=== PATIENT | male | born 1960 | race Caucasian/White ===

== ENCOUNTER 2016-12-26 06:57 | Day surgery (SDC) | payer OTHER ==
[~2016-12-26] VITALS: Ht 180.3 cm; Wt 108.2 kg
[2016-12-26] MEDS ORDERED: advil (07:15)
[2016-12-26 07:16] VITALS: Ht 180.3 cm; Wt 108.2 kg
[2016-12-26 07:43] VITALS: BP 117/61; PULSE 48; RESP 16
[2016-12-26 07:47] VITALS: BP 107/62; RESP 14
[2016-12-26] MEDS ORDERED: PROPOFOL 20 ML ONE (08:14)
[2016-12-26] MEDS ORDERED: FENTAnyl 50 MCG/ML VIAL ONE (08:15)
[2016-12-26] MEDS ORDERED: MIDAZOLAM 1 MG/ML 2 ML INJ ONE (08:15)
--- NOTE | 2016-12-26 08:57 | OPPN ---
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
--- NOTE | 2016-12-26 09:28 | GILP ---
DATE OF PROCEDURE: 12/26/2016 PROCEDURE PERFORMED: Colonoscopy and biopsy. SURGEON: Alexa Santos MD. PREOPERATIVE DIAGNOSIS: Screening colonoscopy. POSTOPERATIVE DIAGNOSES: 1. Colonoscopy all the way to the cecum. 2. Two small polyps from the transverse colon and cecum removed using biopsy forceps. 3. Internal hemorrhoids. INDICATION: Mr. Pavan Healy is a at 56-year-old male patient who was scheduled for screening colonoscopy. The procedure and possible complications were well explained to the patient. The patient understood and consented to the procedure. DESCRIPTION OF PROCEDURE: Under the influence of anesthesia, the colonoscope was carefully introduced in the rectum. Under direct vision, it was advanced all the way to the cecum. FINDINGS: The patient had two small polyps in the transverse colon as well as in the cecum and they were removed using biopsy forceps. He was noted to have internal hemorrhoids. He tolerated the procedure very well. There was no complication from the procedure. At the end of procedure, he was awake with stable vital signs. He was discharged home in the care of his family. IMPRESSION: Please see postop diagnoses. PLAN: Next screening colonoscopy in 10 years. Dictated By: MD SEGUNDO Acuna/dilan/brennan /Document#: [id number]
== END 2016-12-26 13:13 | disposition home or self-care (01) ==
LOC: GIL 06:57
PROVIDERS: ATTEND Internal Medicine Gastroenterology
DX: Z12.11 Encounter for screening for malignant neoplasm of colon (principal); K64.8 Other hemorrhoids; D12.3 Benign neoplasm of transverse colon
CPT/HCPCS: 45380; 88305; J2250; J3010; Z7610

== ENCOUNTER 2017-05-06 11:19 | Emergency (ER) | END 2017-05-06 15:13 | disposition home or self-care (01) ==

== ENCOUNTER 2018-07-02 08:48 | Inpatient (IN) | payer OTHER ==
[~2018-07-02] VITALS: Ht 180.3 cm; Wt 104.2 kg
[~2018-07-02 08:48] MED LIST: ALBU18HF INHALATION; AZIT250T PO; IBUP-1542 PO; PRED20TA PO; advil
[2018-07-02] MEDS ORDERED: ASPIRIN 325 MG TAB PO STA (09:05)
--- NOTE | 2018-07-02 11:12 | ERD ---
ER Documentation Chief Complaint Chief Complaint CP X 1 WEEK HPI 57-year-old male presents the emergency department complaining of chest pain. Patient states that on and off for the last week he had a nonspecific discomfort in the center part of his chest that radiates to his left arm. He describes it as pressure-like. It is nonexertional and non-positional. It is gotten worse over the last 24 hours. He now describes it as mild to moderate. He describes no palpitations, diaphoresis, cough, hemoptysis or any other symptoms with the pain at this time. ROS All systems reviewed and are negative except as per history of present illness. Medications Home Meds Active Scripts Prednisone* (Prednisone*) 20 Mg Tab, 40 MG PO DAILY for 5 Days, TAB Prov:ISA VIEIRA PA-C 05/06/17 Albuterol Sulfate* (Ventolin HFA*) 18 Gm Hfa.aer.ad, 2 PUFF INHALATION Q4H, #1 INHALER Prov:ISA VIEIRA PA-C 05/06/17 Ibuprofen* (Motrin*) 600 Mg Tab, 600 MG PO Q6, #30 TAB Prov:ISA VIEIRA PA-C 05/06/17 Azithromycin* (Zithromax*) 250 Mg Tablet, 250 MG PO .ZPACK DIRECTED, #6 TAB TAKE 500 MG (2 TABS) THE FIRST DAY THEN 250 MG (1 TAB) DAYS 2-5 Prov:ISA VIEIRA PA-C 05/06/17 Reported Medications [advil] No Conflict Check 12/26/16 Allergies Allergies: Coded Allergies: No Known Allergy (Unverified , 05/06/17) PMhx/Soc History of Surgery: No Anesthesia Reaction: No Hx Neurological Disorder: No Hx Respiratory Disorders: Yes (BRONCHITIS ) Hx Cardiac Disorders: No Hx Psychiatric Problems: No Hx Miscellaneous Medical Probl: Yes (GLUCOMA ) Hx Alcohol Use: No Hx Substance Use: No Hx Tobacco Use: No Smoking Status: Never smoker Physical Exam Vitals Vital Signs Date Temp Pulse Resp B/P (MAP) Pulse Ox O2 O2 Flow FiO2 Time Delivery Rate 07/02/18 Nasal 2 09:08 Cannula 07/02/18 97.8 48 18 148/71 99 08:54 (96) Physical Exam GENERAL: The patient is well developed and appropriate for usual state of health in no apparent distress HEENT: Pupils equal, round, and reactive to light. EOMI. There is no scleral icterus. NECK: C-spine is soft and supple, there is no meningismus. There is no cervical lymphadenopathy. LUNGS: Clear to auscultation bilaterally. There are no rales, wheezes or rhonchi. HEART: Regular rate and rhythm, no murmurs, clicks, rubs or gallops. ABDOMEN: Soft, non-tender, non-distended. There are bowel sounds in all four quadrants. No rebound or guarding. EXTREMITIES: There is no peripheral cyanosis or edema. No focal swelling or erythema. NEURO: The patient moves all four extremities with 5/5 strength. Cranial nerves II - XII are intact. Normal gait. Alert and oriented SKIN: There is no apparent rash or petechiae. HEME/LYMPHATIC: There is no evidence of excessive bruising or lymphedema. PSYCHIATRIC: The patient does not appear anxious or depressed. Result Diagram: 07/02/18 0932 07/02/18 0932 Results 24 hrs Laboratory Tests Test 07/02/18 09:32 White Blood Count 6.3 10^3/ul Red Blood Count 4.87 10^6/ul Hemoglobin 15.1 g/dl Hematocrit 44.8 % Mean Corpuscular Volume 92.0 fl Mean Corpuscular Hemoglobin 31.0 pg Mean Corpuscular Hemoglobin Concent 33.7 g/dl Red Cell Distribution Width 12.4 % Platelet Count 249 10^3/UL Mean Platelet Volume 11.0 fl Immature Granulocytes % 0.300 % Neutrophils % 42.5 % Lymphocytes % 39.8 % Monocytes % 10.3 % Eosinophils % 6.3 % Basophils % 0.8 % Nucleated Red Blood Cells % 0.0 /100WBC Immature Granulocytes # 0.020 10^3/ul Neutrophils # 2.7 10^3/ul Lymphocytes # 2.5 10^3/ul Monocytes # 0.7 10^3/ul Eosinophils # 0.4 10^3/ul Basophils # 0.1 10^3/ul Nucleated Red Blood Cells # 0.0 10^3/ul Sodium Level 143 mmol/L Potassium Level 4.0 mmol/L Chloride Level 104 mmol/L Carbon Dioxide Level 28 mmol/L Anion Gap 11 Blood Urea Nitrogen 16 mg/dl Creatinine 0.67 mg/dl Est Glomerular Filtrat Rate mL/min > 60 mL/min Glucose Level 94 mg/dl Calcium Level 8.9 mg/dl Troponin I < 0.012 ng/ml Current Medications Medications Dose Sig/Aurea Start Time Status Last (Trade) Ordered Route PRN Stop Time Admin Dose Reason Admin Aspirin 325 mg ONCE STAT 07/02/18 DC 07/02/18 (Aspirin) PO 09:05 09:54 07/02/18 09:06 Procedures/MDM Patient was taken to a room, seen and evaluated. Comfort measures were initiated. Diagnostic tests were ordered and reviewed. 3 LEAD RHYTHM STRIP: Normal sinus rhythm without ectopy EK lead EKG reviewed by myself: Normal Sinus Rhythm Normal [place] and intervals No ST elevation, depression, or T wave inversion. Nonspecific changes mostly appreciated about the inferior leads Impression: Nonspecific EKG RADIOLOGY: Reviewed with the radiologist CONSULTATION: Hospitalist was notified for admission REEVALUATION: 1110: Diagnostic tests were appreciated and discussed with the patient. We discussed 3-hour troponin versus hospital observation. Patient remained concerned that this might be cardiac in etiology and decision was made to admit for observation for full cardiac evaluation MEDICAL DECISION MAKING: Patient presents with chest pain of uncertain etiology. Differential diagnosis considered includes acute myocardial infarction, pulmonary embolism, as well as vascular and pulmonary concerns. I have reviewed the patients clinical risk factors, EKG, lab studies and imaging. At this time, the cause of his chest pain is still unclear. His EKG and troponin are reassuring. However, given his age and the description of his discomfort, which I am concerned may be anginal, I will be admitting the patient for further cardiac observation and diagnostic evaluation. Departure Diagnosis: Primary Impression: Chest pain Condition: ERICKSON Dee Jul 02, 2018 11:12
[2018-07-02] MEDS ORDERED: TIMO15DR16 OP (11:19)
[2018-07-02] MEDS ORDERED: LATA2.5D2 OP (11:19)
[2018-07-02] MEDS ORDERED: ACETAMINOPHEN 325 MG TAB PO PRN (13:00)
[2018-07-02] MEDS ORDERED: ONDANSETRON 4 MG INJ IV PRN (13:00)
[2018-07-02] MEDS ORDERED: PANTOPRAZOLE 40 MG INJ IV ONE (13:00)
[2018-07-02] MEDS ORDERED: LIDOCAINE/MYLANTA 40 ML BTL PO ONE (13:00)
[2018-07-02] MEDS ORDERED: NACL 0.9% 3 ML SYG IV SCH (13:00)
[2018-07-02] MEDS ORDERED: morphine 2 MG INJ IV PRN (13:00)
--- NOTE | 2018-07-02 13:22 | HP ---
Date/Time of Note Date/Time of Note DATE: 07/02/18 TIME: 13:22 Assessment/Plan VTE Prophylaxis Pharmacological prophylaxis: other Lines/Catheters IV Catheter Type (from Nrs): Saline Lock Assessment/Plan Hospital Course Patient is a male with past medical history significant for glaucoma who presents to [facility] for 1 week onset of chest pain. Patient states that he has had intermittent chest tightness and chest pain that comes and goes for the past week but however it has worsened past 24 hours. Patient describes the pain as a crushing sensation in the mid chest also with a burning sensation in the left chest wall as well as accompanied by a left arm pain as well as left leg pain. Patient states that there is no exacerbating factors and no relieving factors, patient states that the episodes last approximately 3-4 minutes each and spontaneously regress as they appeared. Patient currently appears comfortable however is concerned. Patient states that the leg and the arm pain also began approximately 1 week ago, leg pain is described as a shooting pain on his left thigh and buttock area and his left arm pain is described as a pinpoint pain in his left forearm and sometimes fingers. Patient also states that he had an episode of near syncope as he was putting something away. Patient was asked about his low heart rate and states that he may have heard other physicians saying that he did have a low heart rate in the patient currently denies shortness of breath, nausea, vomiting, abdominal pain, headache. Objective Physical exam General: Patient is laying in bed and answers questions appropriately Mentation: Patient is alert and oriented 4, Head: Normocephalic atraumatic Eyes: EOMI, pupils reactive to light Neck: Supple, nontender, midline Respiratory: Clear to auscultation bilaterally Cardiovascular: regular rate, no obvious murmurs Gastrointestinal: non-tender to palpation, bowel sounds heard. Neurological: Moves all extremities spontaneously Skin: No new skin lesions Assessment and plan Chest pain, rule out ACS -Troponin negative so far, EKG showing bradycardia -Trend troponins -Echocardiogram -Cardiology consulted due to worrisome symptoms as well as symptom medic bradycardia -Aspirin -Statin Near syncope, possible symptomatic bradycardia -With a combined issues with his left side of his arm and leg, will order MRI to rule out any other occult intracranial issue, however syncope may also be related to his bradycardia -Cardiology consulted, monitor -Echocardiogram pending -Carotid ultrasound pending Bradycardia -Patient states that he may have heard from physicians that he has a low heart rate -Cardiology consulted -EKG noted Glaucoma -Continue home medications eyedrops Left leg pain -Symptoms are consistent with sciatic nerve impingement, however will rule out other intracranial causes with MRI the brain, may need stretching exercises versus a temporary dose of muscle relaxers if other etiology does not explain Left arm pain -Not typical of chest pain as pain is pinpoint in the forearm and finger, however monitor closely, MRI pending Disposition -Follow-up cardiology consultation, trend troponins, rule out ACS, MRI pending. Result Diagram: 07/02/18 0932 07/02/1832 Results 24hrs Laboratory Tests Test 07/02/18 09:32 White Blood Count 6.3 Red Blood Count 4.87 Hemoglobin 15.1 Hematocrit 44.8 Mean Corpuscular Volume 92.0 Mean Corpuscular Hemoglobin 31.0 Mean Corpuscular Hemoglobin Concent 33.7 Red Cell Distribution Width 12.4 Platelet Count 249 Mean Platelet Volume 11.0 H Immature Granulocytes % 0.300 Neutrophils % 42.5 Lymphocytes % 39.8 Monocytes % 10.3 Eosinophils % 6.3 Basophils % 0.8 Nucleated Red Blood Cells % 0.0 Immature Granulocytes # 0.020 Neutrophils # 2.7 Lymphocytes # 2.5 Monocytes # 0.7 Eosinophils # 0.4 Basophils # 0.1 Nucleated Red Blood Cells # 0.0 Sodium Level 143 Potassium Level 4.0 Chloride Level 104 Carbon Dioxide Level 28 Anion Gap 11 Blood Urea Nitrogen 16 Creatinine 0.67 Est Glomerular Filtrat Rate mL/min > 60 Glucose Level 94 Calcium Level 8.9 Troponin I < 0.012 HPI/ROS Admit Date/Time Admit Date/Time PMH/Family/Social Past Medical History Medications Current Medications IV Flush (NS 3 ml) 3 ml PER PROTOCOL IV ; Start 07/02/18 at 13:00 Ondansetron HCl (Zofran Inj) 4 mg Q6H PRN IV NAUSEA/VOMITING; Start 07/02/18 at 13:00 Aspirin (Aspirin) 81 mg DAILY PO ; Start 07/03/18 at 09:00 Acetaminophen (Tylenol Tab) 650 mg Q6H PRN PO .PAIN 1-3 OR TEMP; Start 07/02/18 at 13:00 Acetaminophen/ Hydrocodone Bitart ([place] (5/325)) 1 tab Q6H PRN PO .PAIN 4-6; Start 07/02/18 at 13:00 Morphine Sulfate (morphine) 2 mg Q4H PRN IV .PAIN 7-10; Start 07/02/18 at 13:00 Pantoprazole (Protonix Tab) 40 mg DAILY@06 PO ; Start 07/03/18 at 06:00 Heparin Sodium (Porcine) (Heparin (5000 Units/1ml)) 5,000 unit Q8 SC ; Start 07/02/18 at 14:00 Atorvastatin Calcium (Lipitor) 80 mg HS PO ; Start 07/02/18 at 21:00 Latanoprost (Xalatan) 1 drop QHS BOTH EYES ; Start 07/02/18 at 21:00; Status UNV Timolol Maleate (Timoptic 0.5%) 1 drop DAILY BOTH EYES ; Start 07/03/18 at 09:00; Status UNV Coded Allergies: No Known Allergy (Unverified , 07/02/18) Social History Smoking Status: Never smoker Exam/Review of Systems Vital Signs Vitals Vital Signs Date Temp Pulse Resp B/P (MAP) Pulse Ox O2 O2 Flow FiO2 Time Delivery Rate 07/02/18 Nasal 2 09:08 Cannula 07/02/18 97.8 48 18 148/71 99 08:54 (96) EDGAR VIEIRA Jul 02, 2018 13:22
--- NOTE | 2018-07-02 15:41 | RADRPT ---
Echocardiogram Report Patient Name: JEFF MORALESPatient ID: [id number] : 1960 (57y 7m)Study Date: 07/02/2018 1:29:23 PM Gender: MAccession #: [id number] Tech: Anoop [facility] Location: [facility] Ref.Physician: EDGAR VIEIRA Height(Cm): BSA: Weight(Kg): Quality: AdequateAccount #: Procedures: Echocardiographic Report: Transthoracic echocardiogram with complete 2D, M-Mode, and doppler examination. Indications: Chest Pain. Measurements: 2D/M Mode Doppler Measurement Value Normal Range Measurement Value Normal Range LVIDd 2D 4.4 [ 4.2 - 5.8 ] cm AV Peak Frank 1.2 [ 100.0 - 170.0 ] cm/sec LVIDs 2D 2.6 [ 2.5 - 4.0 ] cm AV Peak PG 6.0 [ 2.0 - 9.0 ] mmHg LVPWd 2D 1.1 [ 0.6 - 1.0 ] cm LVOT Peak Frank 0.8 [ 70.0 - 110.0 ] cm/sec IVSd 2D 1.2 [ 0.6 - 1.0 ] cm LVOT Peak PG 3.0 [ 2.0 - 6.0 ] mmHg IVS/LVPW 2D 1.0 ratio MV E Peak Frank 0.6 [ 60.0 - 130.0 ] cm/sec AoR Diam 2D 2.7 [ 2.6 - 3.4 ] cm MV A Peak Frank 0.9 [ 100.0 - 120.0 ] cm/sec LA/Ao 2D 1 ratio MV E/A 0.7 [ 0.8 - 1.5 ] ratio LA Dimen 2D 3.7 [ 3.0 - 4.0 ] cm MV Decel Time 225 [ 104 - 258 ] msec Lat E` Frank 0.1 [ 10.0 - 15.0 ] cm/sec MV E/A 0.7 [ 0.8 - 1.5 ] ratio TR Peak Frank 1.7 [ 100.0 - 280.0 ] cm/sec TR Peak PG 12.0 mmHg RVSP 15.0 [ 10.0 - 36.0 ] mmHg Findings: Left Ventricle: Normal left ventricular systolic function. Normal left ventricular cavity size. Left ventricular wall thickness upper limits of normal. Ejection fraction is visually estimated at 65 %. Tissue Doppler/Mitral Doppler indices are consistent with impaired relaxation (Stage I diastolic dysfunction). Right Ventricle: Normal right ventricular size. Normal right ventricular systolic function. Left Atrium: The left atrium is normal in size. Right Atrium: The right atrium is normal in size. Mitral Valve: Mild mitral leaflet calcification. Mild mitral annular calcification. Trace mitral regurgitation. Aortic Valve: No hemodynamically significant aortic stenosis by doppler. Aortic cusps appear mildly calcified. Tricuspid Valve: Normal appearance of the tricuspid valve. Estimated peak PA systolic pressure 15 mmHg. There is trace tricuspid regurgitation. Pericardium: Normal pericardium with no significant pericardial effusion. Aorta: Normal aortic root. IVC: Normal size and normal respiratory collapse consistent with normal right atrial pressure. Conclusions: Normal left ventricular systolic function. Normal left ventricular cavity size. Left ventricular wall thickness upper limits of normal. Ejection fraction is visually estimated at 65 %. Tissue Doppler/Mitral Doppler indices are consistent with impaired relaxation (Stage I diastolic dysfunction). Normal right ventricular size. Normal right ventricular systolic function. The left atrium is normal in size. The right atrium is normal in size. No significant valvular stenosis or regurgitation seen. Normal pericardium with no significant pericardial effusion. Electronically Signed By: Michael Bonilla 2018-07-02 15:40:46 PDT
--- NOTE | 2018-07-02 16:03 | CONS ---
Assessment/Plan Assessment/Plan Hospital Course (Demo Recall) Left sided pain Sinus bradycardia Near syncope/syncope Preserved ejection fraction Glaucoma -Patient presents with left-sided body pain including neck, shoulder, chest, leg. The pain is worse with range of motion and palpation. Pain is nonexertional. -Initial cardiac enzymes are negative, ECG with sinus bradycardia, echocardiogram with preserved ejection fraction -Patient undergoing further evaluation including imaging. Pain is elicited with palpation and does not appear cardiac in origin -Of note, patient with near syncope/syncope with head extension and reaching for something last week. Patient with baseline sinus bradycardia. Would monitor on telemetry. Consultation Date/Type/Reason Admit Date/Time Type of Consult Cardiology Reason for Consultation Chest pain Date/Time of Note DATE: 07/02/18 TIME: 15:57 Hx of Present Illness This is a 57-year-old male with past medical history of glaucoma who presents with left-sided body pain going on for 1 week. Patient complains of sharp discomfort in his shoulder, arm, chest and left leg. Pain is also tingling-like and burning-like. Pain is worse with arm movements and coughing. Pain is worse with palpation of shoulder and chest wall. Proxy 1 week ago, patient was reaching for something above his shelf with his head extended. After a few seconds, he became lightheaded and he thinks he blacked out. He did fall to the ground forward, unclear if he fell on his left side. He does complain of occas ional lightheadedness with standing up weekly. Denies any exertional chest pain or shortness of breath, dizziness or lightheadedness. 12 point review of systems was performed with all pertinent positives and negatives mentioned above and all else is negative Past Medical History Glaucoma Home Meds Reported Medications Latanoprost (Latanoprost) 2.5 Ml Drops, 1 DROP OP QHS INTO BOTH EYES 07/02/18 Timolol Maleate* (Timolol Maleate* Ophth) 0.5%-15ml Opht, 1 DROP OP DAILY 07/02/18 Discontinued Reported Medications [advil] No Conflict Check 12/26/16 Discontinued Scripts Prednisone* (Prednisone*) 20 Mg Tab, 40 MG PO DAILY for 5 Days, TAB Prov:ISA VIEIRA PA-C 05/06/17 Albuterol Sulfate* (Ventolin HFA*) 18 Gm Hfa.aer.ad, 2 PUFF INHALATION Q4H, #1 INHALER Prov:ISA VIEIRA PA-C 05/06/17 Ibuprofen* (Motrin*) 600 Mg Tab, 600 MG PO Q6, #30 TAB Prov:ISA VIEIRA PA-C 05/06/17 Azithromycin* (Zithromax*) 250 Mg Tablet, 250 MG PO .ZPACK DIRECTED, #6 TAB TAKE 500 MG (2 TABS) THE FIRST DAY THEN 250 MG (1 TAB) DAYS 2-5 Prov:ISA VIEIRA PA-C 05/06/17 Medications Current Medications IV Flush (NS 3 ml) 3 ml PER PROTOCOL IV ; Start 07/02/18 at 13:00 Ondansetron HCl (Zofran Inj) 4 mg Q6H PRN IV NAUSEA/VOMITING; Start 07/02/18 at 13:00 Aspirin (Aspirin) 81 mg DAILY PO ; Start 07/03/18 at 09:00 Acetaminophen (Tylenol Tab) 650 mg Q6H PRN PO .PAIN 1-3 OR TEMP; Start 07/02/18 at 13:00 Acetaminophen/ Hydrocodone Bitart ([place] (5/325)) 1 tab Q6H PRN PO .PAIN 4-6; Start 07/02/18 at 13:00 Morphine Sulfate (morphine) 2 mg Q4H PRN IV .PAIN 7-10; Start 07/02/18 at 13:00 Pantoprazole (Protonix Tab) 40 mg DAILY@06 PO ; Start 07/03/18 at 06:00 Heparin Sodium (Porcine) (Heparin (5000 Units/1ml)) 5,000 unit Q8 SC ; Start 07/02/18 at 14:00 Atorvastatin Calcium (Lipitor) 80 mg HS PO ; Start 07/02/18 at 21:00 Latanoprost (Xalatan) 1 drop QHS BOTH EYES ; Start 07/02/18 at 21:00 Timolol Maleate (Timoptic 0.5%) 1 drop DAILY BOTH EYES ; Start 07/03/18 at 09:00 Allergies: Coded Allergies: No Known Allergy (Unverified , 07/02/18) Social History Smoking Status: Never smoker Exam/Review of Systems Vital Signs Vitals Vital Signs Date Temp Pulse Resp B/P (MAP) Pulse Ox O2 O2 Flow FiO2 Time Delivery Rate 07/02/18 56 16 114/70 98 Room Air 14:00 (85) 07/02/18 2 09:08 07/02/18 97.8 08:54 Exam Constitutional: alert, oriented (No apparent distress, family bedside) Head: normocephalic Neck: other (Pain with palpation left side of neck) Respiratory: clear to auscultation, normal air movement Cardiovascular: regular rate and rhythm (S1-S2 heard, no significant murmurs auscultated) Gastrointestinal: soft, non-tender, bowel sounds Musculoskeletal: other (Pain with palpation of left side of chest wall, pain with range of motion of left arm, pain with palpation of left cervical region) Extremities: other (No significant edema) Labs Result Diagram: 07/02/18 0932 07/02/18 0932 Results 24hrs Laboratory Tests Test 07/02/18 09:32 White Blood Count 6.3 Red Blood Count 4.87 Hemoglobin 15.1 Hematocrit 44.8 Mean Corpuscular Volume 92.0 Mean Corpuscular Hemoglobin 31.0 Mean Corpuscular Hemoglobin Concent 33.7 Red Cell Distribution Width 12.4 Platelet Count 249 Mean Platelet Volume 11.0 H Immature Granulocytes % 0.300 Neutrophils % 42.5 Lymphocytes % 39.8 Monocytes % 10.3 Eosinophils % 6.3 Basophils % 0.8 Nucleated Red Blood Cells % 0.0 Immature Granulocytes # 0.020 Neutrophils # 2.7 Lymphocytes # 2.5 Monocytes # 0.7 Eosinophils # 0.4 Basophils # 0.1 Nucleated Red Blood Cells # 0.0 Sodium Level 143 Potassium Level 4.0 Chloride Level 104 Carbon Dioxide Level 28 Anion Gap 11 Blood Urea Nitrogen 16 Creatinine 0.67 Est Glomerular Filtrat Rate mL/min > 60 Glucose Level 94 Calcium Level 8.9 Troponin I < 0.012 Imaging Imaging ECG with sinus bradycardia at 48 bpm, QRS 100 ms, no significant ischemic ST abnormalities Medications Medications Current Medications IV Flush (NS 3 ml) 3 ml PER PROTOCOL IV ; Start 07/02/18 at 13:00 Ondansetron HCl (Zofran Inj) 4 mg Q6H PRN IV NAUSEA/VOMITING; Start 07/02/18 at 13:00 Aspirin (Aspirin) 81 mg DAILY PO ; Start 07/03/18 at 09:00 Acetaminophen (Tylenol Tab) 650 mg Q6H PRN PO .PAIN 1-3 OR TEMP; Start 07/02/18 at 13:00 Acetaminophen/ Hydrocodone Bitart ([place] (5/325)) 1 tab Q6H PRN PO .PAIN 4-6; Start 07/02/18 at 13:00 Morphine Sulfate (morphine) 2 mg Q4H PRN IV .PAIN 7-10; Start 07/02/18 at 13:00 Pantoprazole (Protonix Tab) 40 mg DAILY@06 PO ; Start 07/03/18 at 06:00 Heparin Sodium (Porcine) (Heparin (5000 Units/1ml)) 5,000 unit Q8 SC ; Start 07/02/18 at 14:00 Atorvastatin Calcium (Lipitor) 80 mg HS PO ; Start 07/02/18 at 21:00 Latanoprost (Xalatan) 1 drop QHS BOTH EYES ; Start 07/02/18 at 21:00 Timolol Maleate (Timoptic 0.5%) 1 drop DAILY BOTH EYES ; Start 07/03/18 at 09:00 Michael Bonilla DO Jul 02, 2018 16:03
[2018-07-02] MEDS: HEPARIN 5,000 UNIT/1 ML VIAL SC SCH ×2 (18:10→21:24)
[2018-07-02 20:10] VITALS: PULSE 64
[2018-07-02 20:15] VITALS: BP 125/79; PULSE 62; RESP 18
[2018-07-02] MEDS: LATANOPROST 0.005% 2.5 ML OPH BOTH EYES SCH (21:00)
[2018-07-02] MEDS: ATORVASTATIN 80 MG TAB PO SCH (21:41)
[2018-07-02 21:48] VITALS: Ht 180.3 cm; Wt 104.2 kg
[2018-07-02 23:46] VITALS: BP 98/56; PULSE 52; RESP 18
[2018-07-03] VITALS (12 sets, daily range): BP systolic 101–115; BP diastolic 57–72; PULSE 48–64; RESP 18
[2018-07-03] MEDS: PANTOPRAZOLE (EC) 40 MG TAB PO SCH (05:16)
[2018-07-03] MEDS: HEPARIN 5,000 UNIT/1 ML VIAL SC SCH ×3 (05:43→21:29)
[2018-07-03] MEDS: ASPIRIN 81 MG TAB PO SCH (08:46)
[2018-07-03] MEDS: TIMOLOL 0.5% 5 ML OPH BOTH EYES SCH (10:01)
[2018-07-03] MEDS ORDERED: ALBUTEROL/IPRATROPIUM (NEB) 3 ML AMP HHN PRN (13:00)
--- NOTE | 2018-07-03 13:42 | PN ---
Date/Time of Note Date/Time of Note DATE: 07/03/18 TIME: 13:39 Objective Vitals Vital Signs Date Temp Pulse Resp B/P (MAP) Pulse Ox O2 O2 Flow FiO2 Time Delivery Rate 07/03/18 58 12:30 07/03/18 98.2 18 115/69 97 Room Air 11:10 (84) 07/02/18 2 09:08 Intake and Output 07/02/18 07/02/18 07/03/18 1515:00 23:00 07:00 IntakeIntake Total 250 ml BalanceBalance 250 ml Results Result Diagram: 07/03/1812 07/03/18611 Medications Medications Current Medications IV Flush (NS 3 ml) 3 ml PER PROTOCOL IV ; Start 07/02/18 at 13:00 Ondansetron HCl (Zofran Inj) 4 mg Q6H PRN IV NAUSEA/VOMITING; Start 07/02/18 at 13:00 Aspirin (Aspirin) 81 mg DAILY PO Last administered on 07/03/18at 08:46; Admin Dose 81 MG; Start 07/03/18 at 09:00 Acetaminophen (Tylenol Tab) 650 mg Q6H PRN PO .PAIN 1-3 OR TEMP; Start 07/02/18 at 13:00 Acetaminophen/ Hydrocodone Bitart ([place] (5/325)) 1 tab Q6H PRN PO .PAIN 4-6; Start 07/02/18 at 13:00 Morphine Sulfate (morphine) 2 mg Q4H PRN IV .PAIN 7-10; Start 07/02/18 at 13:00 Pantoprazole (Protonix Tab) 40 mg DAILY@06 PO Last administered on 07/03/18at 05:16; Admin Dose 40 MG; Start 07/03/18 at 06:00 Heparin Sodium (Porcine) (Heparin (5000 Units/1ml)) 5,000 unit Q8 SC Last administered on 07/03/18at 05:43; Admin Dose 5,000 UNIT; Start 07/02/18 at 14:00 Atorvastatin Calcium (Lipitor) 80 mg HS PO Last administered on 07/02/18at 21:41; Admin Dose 80 MG; Start 07/02/18 at 21:00 Latanoprost (Xalatan) 1 drop QHS BOTH EYES ; Start 07/02/18 at 21:00 Timolol Maleate (Timoptic 0.5%) 1 drop DAILY BOTH EYES Last administered on 07/03/18at 10:01; Admin Dose 1 DROP; Start 07/03/18 at 09:00 Baclofen (Lioresal) 10 mg TID PO ; Start 07/03/18 at 13:00 Albuterol/ Ipratropium (Duoneb) 3 ml Q6HWA RESP THERAPY HHN ; Start 07/03/18 at 14:00 Albuterol/ Ipratropium (Duoneb) 3 ml Q2H RESP THERAPY PRN HHN shortness of breath; Start 07/03/18 at 13:00 Lines/Catheters IV Catheter Type: Oliveros in Place: No Assessment/Plan Hospital Course Subjective Patient complaining of cough which exacerbates his chest pain, leg pain has resolved as well as arm pain. Objective Physical exam General: Patient is laying in bed and answers questions appropriately Mentation: Patient is alert and oriented 4, Head: Normocephalic atraumatic Eyes: EOMI, pupils reactive to light Neck: Supple, nontender, midline Respiratory: Clear to auscultation bilaterally Cardiovascular: regular rate, no obvious murmurs Gastrointestinal: non-tender to palpation, bowel sounds heard. Neurological: Moves all extremities spontaneously Skin: No new skin lesions Assessment and plan Chest pain, rule out ACS -Troponin negative, EKG showing bradycardia -Echocardiogram per cardiology -Cardiology consulted due to worrisome symptoms as well as symptom medic bradycardia -Aspirin -Statin Cough with chest pain -Patient is very sensitive to chemicals and other scents, will order CT chest as whenever he coughs it exacerbates this chest pain, we need to rule out other causes. -May be musculoskeletal, will attempt trial of baclofen. Mild hypothyroidism -T4 Free pending Near syncope, possible symptomatic bradycardia -MRI negative for any acute issue cyst information relayed to patient. -Cardiology consulted, monitor -Echocardiogram per cardiology -Carotid ultrasound not showing acute issue Bradycardia -Patient states that he may have heard from physicians that he has a low heart rate -Cardiology consulted -EKG noted Glaucoma -Continue home medications eyedrops Left leg pain -Symptoms are consistent with sciatic nerve impingement, resolved and intermittent, follow-up with her as outpatient primary care provider. Dist ribution of pain is in the thigh and only intermittent. Left arm pain -Not typical of chest pain as pain is pinpoint in the forearm and finger, pain has resolved Disposition -Follow-up cardiology consultation, pending CT chest per EDGAR VIEIRA Jul 03, 2018 13:42
[2018-07-03] MEDS: BACLOFEN 10 MG TAB PO SCH ×2 (13:49→21:23)
--- NOTE | 2018-07-03 17:44 | CONS ---
Assessment/Plan Assessment/Plan Hospital Course (Demo Recall) Left sided body pain-improving Sinus bradycardia History of near syncope/syncope Preserved ejection fraction Glaucoma -Patient presents with left-sided body pain including neck, shoulder, chest, leg. The pain is worse with range of motion and palpation. Pain is nonexertional. Pain has improved with muscle relaxants. Symptoms not appear cardiac in origin -Serial cardiac enzymes are negative, ECG with sinus bradycardia, echocardiogram with preserved ejection fraction -Patient overall sinus bradycardia with lowest heart rate 49/min on telemetry. Remains asymptomatic. No need for pacemaker at the current time. -No further inpatient cardiac workup needed at the current time. Consultation Date/Type/Reason Admit Date/Time Jul 03, 2018 at 12:39 Initial Consult Date Type of Consult Cardiology Date/Time of Note DATE: 07/03/18 TIME: 17:42 24 HR Interval Summary Free Text/Dictation Feeling better. Denies dizziness. His left sided body discomfort better after muscle relaxants Exam/Review of Systems Vital Signs Vitals Vital Signs Date Temp Pulse Resp B/P (MAP) Pulse Ox O2 O2 Flow FiO2 Time Delivery Rate 07/03/18 57 16:26 07/03/18 98.0 18 101/61 97 Room Air 15:08 (74) 07/02/18 2 09:08 Intake and Output 07/02/18 07/02/18 07/03/18 1515:00 23:00 07:00 IntakeIntake Total 250 ml BalanceBalance 250 ml Exam Constitutional: alert, oriented (No apparent distress) Head: normocephalic Respiratory: clear to auscultation, normal air movement Cardiovascular: regular rate and rhythm (S1-S2 heard) Gastrointestinal: soft, non-tender, bowel sounds Extremities: other (No significant edema) Labs Result Diagram: 07/03/1812 07/03/18 0612 Results 24hrs Laboratory Tests Test 07/02/18 23:06 07/03/18 06:12 Creatine Kinase 73 Creatine Kinase Index 0.3 Creatinine Kinase MB (Mass) 0.23 Troponin I < 0.012 White Blood Count 7.2 Red Blood Count 4.90 Hemoglobin 15.1 Hematocrit 45.3 Mean Corpuscular Volume 92.4 Mean Corpuscular Hemoglobin 30.8 Mean Corpuscular Hemoglobin Concent 33.3 Red Cell Distribution Width 12.4 Platelet Count 258 Mean Platelet Volume 11.3 H Immature Granulocytes % 0.400 Neutrophils % 41.1 Lymphocytes % 43.5 Monocytes % 9.3 Eosinophils % 5.1 Basophils % 0.6 Nucleated Red Blood Cells % 0.0 Immature Granulocytes # 0.030 Neutrophils # 3.0 Lymphocytes # 3.1 H Monocytes # 0.7 Eosinophils # 0.4 Basophils # 0.0 Nucleated Red Blood Cells # 0.0 Sodium Level 143 Potassium Level 4.2 Chloride Level 101 Carbon Dioxide Level 30 Anion Gap 12 Blood Urea Nitrogen 16 Creatinine 0.86 Est Glomerular Filtrat Rate mL/min > 60 Glucose Level 90 Hemoglobin A1c 5.2 Calcium Level 8.9 Magnesium Level 2.2 Total Bilirubin 0.6 Direct Bilirubin 0.00 Indirect Bilirubin 0.6 Aspartate Amino Transf (AST/SGOT) 25 Alanine Aminotransferase (ALT/SGPT) 21 Alkaline Phosphatase 64 Total Protein 7.0 Albumin 4.0 Globulin 3.00 Albumin/Globulin Ratio 1.33 Triglycerides Level 174 H Cholesterol Level 149 LDL Cholesterol, Calculated 78 HDL Cholesterol 36 Cholesterol/HDL Ratio 4.1 Thyroid Stimulating Hormone (TSH) 6.600 H Medications Medications Current Medications IV Flush (NS 3 ml) 3 ml PER PROTOCOL IV ; Start 07/02/18 at 13:00 Ondansetron HCl (Zofran Inj) 4 mg Q6H PRN IV NAUSEA/VOMITING; Start 07/02/18 at 13:00 Aspirin (Aspirin) 81 mg DAILY PO Last administered on 07/03/18at 08:46; Admin Dose 81 MG; Start 07/03/18 at 09:00 Acetaminophen (Tylenol Tab) 650 mg Q6H PRN PO .PAIN 1-3 OR TEMP; Start 07/02/18 at 13:00 Acetaminophen/ Hydrocodone Bitart ([place] (5/325)) 1 tab Q6H PRN PO .PAIN 4-6; Start 07/02/18 at 13:00 Morphine Sulfate (morphine) 2 mg Q4H PRN IV .PAIN 7-10; Start 07/02/18 at 13:00 Pantoprazole (Protonix Tab) 40 mg DAILY@06 PO Last administered on 07/03/18at 05:16; Admin Dose 40 MG; Start 07/03/18 at 06:00 Heparin Sodium (Porcine) (Heparin (5000 Units/1ml)) 5,000 unit Q8 SC Last administered on 07/03/18at 13:54; Admin Dose 5,000 UNIT; Start 07/02/18 at 14:00 Atorvastatin Calcium (Lipitor) 80 mg HS PO Last administered on 07/02/18at 21:41; Admin Dose 80 MG; Start 07/02/18 at 21:00 Latanoprost (Xalatan) 1 drop QHS BOTH EYES ; Start 07/02/18 at 21:00 Timolol Maleate (Timoptic 0.5%) 1 drop DAILY BOTH EYES Last administered on 07/03/18at 10:01; Admin Dose 1 DROP; Start 07/03/18 at 09:00 Baclofen (Lioresal) 10 mg TID PO Last administered on 07/03/18at 13:49; Admin Dose 10 MG; Start 07/03/18 at 13:00 Albuterol/ Ipratropium (Duoneb) 3 ml Q6HWA RESP THERAPY HHN ; Start 07/03/18 at 14:00 Albuterol/ Ipratropium (Duoneb) 3 ml Q2H RESP THERAPY PRN HHN shortness of breath; Start 07/03/18 at 13:00 Michael Bonilla DO Jul 03, 2018 17:44
[2018-07-03] MEDS: HYDROCODONE/APAP (5/325) TAB PO PRN (19:13)
[2018-07-03] MEDS: ALBUTEROL/IPRATROPIUM (NEB) 3 ML AMP HHN SCH (20:07)
[2018-07-03] MEDS: LATANOPROST 0.005% 2.5 ML OPH BOTH EYES SCH (21:00)
[2018-07-03] MEDS: ATORVASTATIN 80 MG TAB PO SCH (21:23)
[2018-07-04] VITALS (9 sets, daily range): BP systolic 103–133; BP diastolic 58–76; PULSE 44–61; RESP 18–19
[2018-07-04] MEDS: LATANOPROST 0.005% 2.5 ML OPH BOTH EYES SCH (00:56)
[2018-07-04] MEDS: PANTOPRAZOLE (EC) 40 MG TAB PO SCH (06:23)
[2018-07-04] MEDS: HEPARIN 5,000 UNIT/1 ML VIAL SC SCH ×2 (06:27→13:21)
[2018-07-04] MEDS: TIMOLOL 0.5% 5 ML OPH BOTH EYES SCH (08:17)
[2018-07-04] MEDS: BACLOFEN 10 MG TAB PO SCH ×2 (08:17→13:07)
[2018-07-04] MEDS: ASPIRIN 81 MG TAB PO SCH (08:17)
[2018-07-04] MEDS: ALBUTEROL/IPRATROPIUM (NEB) 3 ML AMP HHN SCH ×2 (08:23→13:11)
[2018-07-04] MEDS: HYDROCODONE/APAP (5/325) TAB PO PRN (09:26)
[2018-07-04] MEDS ORDERED: ALBU8.5H8 INH (11:40)
--- NOTE | 2018-07-04 11:43 | PDOCDIS ---
Discharge Instructions CONDITION [id number] Patient Condition: Murok1s Stable FOLLOW UP/APPOINTMENTS Follow-up Plan 1. Please follow-up with your primary care provider. You will need repeat thyroid blood test within 1 month, your TSH was mildly elevated however your free T4 was within normal limits. 2. Please know that you have findings of prior granulomatous disease on CT of the chest, please follow-up with your primary care doctor to evaluate for continued respiratory issues including possible asthma or COPD. 3. Please let your primary care provider know that on brain MRI you have a benign arachnoid cyst in the right cisterna magna 4. Please follow-up with your primary care provider as soon as possible. EDGAR VIEIRA Jul 04, 2018 11:43
--- NOTE | 2018-07-04 11:47 | DS ---
Date/Time of Note Date/Time of Note DATE: 07/04/18 TIME: 11:47 Discharge Summary Admission/Discharge Info Admit Date/Time Jul 03, 2018 at 12:39 Discharge Date/Time Patient Condition: Stable Hospital Course Patient is a male with a past medical history significant for glaucoma who presented to [facility] for symptoms of chest pain, and near syncope. Patient was thoroughly evaluated for his bradycardia, chest pain as well as his near syncope. Patient received a consultation from cardiology which cleared him from any cardiac issue patient symptoms resolved spontaneously with breathing treatment and muscle relaxer. CT of the chest did find some evidence of prior granulomatous disease so it is possible patient does have asthma or COPD or other mild lung pathology which may be exacerbating his musculoskeletal chest pain. Patient states that his left-sided pain resolved immediately after breathing treatment. Patient will be discharged with appropriate albuterol inhaler and to follow-up with his primary care provider to evaluate for lung pathology. Patient's other symptoms have completely resolved and his initial complaints were likely secondary to musculoskeletal issues. Patient received MRI of the brain as well which did not show any acute pathology but did show a benign cyst which was also conveyed to the patient. Patient states that he will follow-up with his primary care provider as soon as possible. Patient also had a very mildly elevated TSH however T4 is within normal limits and instead of starting patient on a brand-new medication with a borderline TSH, it was recommended the patient follow-up with his primary care provider and within 1 month get a repeat TSH to evaluate need of hypothyroid medication. Discharge diagnosis Chest pain, ACS ruled out, likely muscular skeletal Cough, chronic, possibly chronic lung pathology, questionable asthma Near syncope, completely resolved Bradycardia, stable Glaucoma Left leg pain, resolved Left arm pain, resolved Mildly elevated TSH, monitor and repeat blood test in 1 month Home Meds Active Scripts Albuterol Sulfate* (Proair HFA*) 8.5 Gm Hfa.aer.ad, 2 PUFF INH Q6 PRN for WHEEZING, #1 INHALER 2 Refills Prov:EDGAR VIEIRA 07/04/18 Reported Medications Latanoprost (Latanoprost) 2.5 Ml Drops, 1 DROP OP QHS INTO BOTH EYES 07/02/18 Timolol Maleate* (Timolol Maleate* Ophth) 0.5%-15ml Opht, 1 DROP OP DAILY 07/02/18 Discontinued Reported Medications [advil] No Conflict Check 12/26/16 Discontinued Scripts Prednisone* (Prednisone*) 20 Mg Tab, 40 MG PO DAILY for 5 Days, TAB Prov:ISA VIEIRA PA-C 05/06/17 Albuterol Sulfate* (Ventolin HFA*) 18 Gm Hfa.aer.ad, 2 PUFF INHALATION Q4H, #1 INHALER Prov:ISA VIEIRA PA-C 05/06/17 Ibuprofen* (Motrin*) 600 Mg Tab, 600 MG PO Q6, #30 TAB Prov:ISA VIEIRA PA-C 05/06/17 Azithromycin* (Zithromax*) 250 Mg Tablet, 250 MG PO .ZPACK DIRECTED, #6 TAB TAKE 500 MG (2 TABS) THE FIRST DAY THEN 250 MG (1 TAB) DAYS 2-5 Prov:ISA VIEIRA PA-C 05/06/17 Follow-up Plan 1. Please follow-up with your primary care provider. You will need repeat thyroid blood test within 1 month, your TSH was mildly elevated however your free T4 was within normal limits. 2. Please know that you have findings of prior granulomatous disease on CT of the chest, please follow-up with your primary care doctor to evaluate for continued respiratory issues including possible asthma or COPD. 3. Please let your primary care provider know that on brain MRI you have a benign arachnoid cyst in the right cisterna magna 4. Please follow-up with your primary care provider as soon as possible. Primary Care Provider Not On Staff Doctor Time spent on discharge: > 30 minutes Pending Labs Laboratory Tests Test 07/04/18 07:07 White Blood Count 7.7 10^3/ul (4.8-10.8) Red Blood Count 4.77 10^6/ul (4.70-6.10) Hemoglobin 14.8 g/dl (14.0-18.0) Hematocrit 43.8 % (42.0-52.0) Mean Corpuscular Volume 91.8 fl (82.0-101.0) Mean Corpuscular Hemoglobin 31.0 pg (29.0-33.0) Mean Corpuscular Hemoglobin Concent 33.8 g/dl (32.0-37.0) Red Cell Distribution Width 12.2 % (11.5-14.5) Platelet Count 245 10^3/UL (140-415) Mean Platelet Volume 11.7 fl (7.4-10.4) Immature Granulocytes % 0.500 % (0.001-0.429) Neutrophils % 36.1 % (39.0-77.0) Lymphocytes % 48.6 % (15.0-51.0) Monocytes % 9.4 % (0.0-11.0) Eosinophils % 5.0 % (0.0-7.0) Basophils % 0.4 % (0.0-2.0) Nucleated Red Blood Cells % 0.0 /100WBC (0.0-0.0) Immature Granulocytes # 0.040 10^3/ul (0.0-0.031) Neutrophils # 2.8 10^3/ul (1.6-7.5) Lymphocytes # 3.7 10^3/ul (0.8-2.9) Monocytes # 0.7 10^3/ul (0.3-0.9) Eosinophils # 0.4 10^3/ul (0.0-0.5) Basophils # 0.0 10^3/ul (0.0-0.1) Nucleated Red Blood Cells # 0.0 10^3/ul (0.0-0.0) Sodium Level 141 mmol/L (135-144) Potassium Level 3.6 mmol/L (3.5-5.1) Chloride Level 101 mmol/L (97-110) Carbon Dioxide Level 29 mmol/L (21-31) Anion Gap 11 (5-13) Blood Urea Nitrogen 16 mg/dl (7-20) Creatinine 0.79 mg/dl (0.61-1.24) Est Glomerular Filtrat Rate mL/min > 60 mL/min (>60) Glucose Level 77 mg/dl (70-220) Calcium Level 8.7 mg/dl (8.4-10.2) Phosphorus Level 3.7 mg/dl (2.5-4.9) Magnesium Level 2.1 mg/dl (1.7-2.5) Free Thyroxine 1.18 ng/dl (0.64-1.79) EDGAR VIEIRA J Jul 04, 2018 11:47
== END 2018-07-04 14:13 | disposition home or self-care (01) | DRG 313 ==
LOC: E/R 08:48 → TEL 11:16 → OBSVTOIN 07-03 12:39
PROVIDERS: ADMIT Internal Medicine; ATTEND Internal Medicine
DX: R07.89 Other chest pain (principal); R00.1 Bradycardia, unspecified; R55 Syncope and collapse; M79.605 Pain in left leg; H40.9 Unspecified glaucoma; M79.602 Pain in left arm; J45.909 Unspecified asthma, uncomplicated; R05 Cough; Z79.82 Long term (current) use of aspirin
CPT/HCPCS: 36415; 70551; 71045; 71250; 80048; 80053; 80061; 82550; 82553; 83036; 83735; 84100; 84439; 84443; 84484; 85025; 93005; 93306; 93880; 94640; 94664; 97161; G0378; C9113; J1644